=== PATIENT | male | born 1965 | race African-American/Black ===

== ENCOUNTER 2020-10-10 10:58 | Emergency (ER) | payer OTHER ==
[~2020-10-10] VITALS: Ht 172.7 cm; Wt 69.4 kg
[2020-10-10 11:23] VITALS: Ht 172.7 cm; Wt 69.4 kg
[2020-10-10] MEDS ORDERED: ULTRAM50 MG PO (14:07)
[2020-10-10 14:43] VITALS: BP 115/89
== END 2020-10-10 14:43 | disposition home or self-care (01) ==
LOC: ED 10:58
DX: M79.662 Pain in left lower leg (principal); M79.661 Pain in right lower leg
CPT/HCPCS: J1885